=== PATIENT | female | born 1950 | race Caucasian/White ===

== ENCOUNTER 2021-02-15 16:52 | Emergency (ER) | payer OTHER, MEDICAID ==
[~2021-02-15] VITALS: Ht 165.1 cm; Wt 66.3 kg
[2021-02-15] MEDS ORDERED: IV NORMAL SALINE 1,000ML 1,000 ML IV ONE (18:15)
--- NOTE | 2021-02-15 18:34 | PHYS DOC ---
Past History Past Surgical History: Cholecystectomy, Hysterectomy, Oophorectomy, Other Additional Past Surgical Histo: foot surgery Alcohol Use: None General Adult EDM: Chief Complaint: loose stools HPI: HPI: 70-year-old female presents at the direction of her primary care office for abdominal pain and loose stools. Patient states that she has been having issues for about 2 weeks. She tells me that she is actually feeling a bit better the last 2 days. She had a CT scan done which showed diverticulitis. She has not started any oral medications. She denies fever or chills. She has no other specific complaints this time. Review of Systems: Review of Systems: Constitutional: Denies fever or chills Eyes: Denies change in visual acuity HENT: Denies nasal congestion or sore throat Respiratory: Denies cough or shortness of breath Cardiovascular: Denies chest pain or edema GI: Intermittent abdominal pain, loose stools. Denies nausea, vomiting, bloody stools : Denies dysuria Musculoskeletal: Denies back pain or joint pain Integument: Denies rash Neurologic: Denies headache, focal weakness or sensory changes Endocrine: Denies polyuria or polydipsia Lymphatic: Denies swollen glands Psychiatric: Denies depression or anxiety Current Medications: Current Meds: Current Medications Medications (Trade) Dose Ordered Sig/Niko Start Time Stop Time Status Last Admin Dose Admin Sodium Chloride 1,000 ml @ 1,000 mls/hr 1X ONCE 02/15/21 18:15 02/15/21 19:14 Allergies: Allergies: Allergies Coded Allergies Type Severity Reaction Last Updated Verified codeine Allergy Unknown 02/15/21 Yes Physical Exam: PE: Constitutional: Well developed, well nourished, no acute distress, non-toxic appearance. [] HENT: Normocephalic, atraumatic, bilateral external ears normal, oropharynx moist, no oral exudates, nose normal. [] Eyes: PERRLA, EOMI, conjunctiva normal, no discharge. [] Neck: Normal range of motion, no tenderness, supple, no stridor. [] Cardiovascular: Heart rate regular rhythm, no murmur [] Lungs & Thorax: Bilateral breath sounds clear to auscultation [] Abdomen: Bowel sounds normal, soft, no tenderness, no masses, no pulsatile masses. [] Skin: Warm, dry, no erythema, no rash. [] Back: No tenderness, no CVA tenderness. [] Extremities: No tenderness, no cyanosis, no clubbing, ROM intact, no edema. [] Neurologic: Alert and oriented X 3, normal motor function, normal sensory function, no focal deficits noted. [] Psychologic: Affect normal, judgement normal, mood normal. [] Current Patient Data: Vital Signs: Vital Signs Date Time Temp Pulse Resp B/P (MAP) Pulse Ox O2 Delivery O2 Flow Rate FiO2 02/15/21 18:08 98.6 72 18 106/49 98 Room Air EKG: EKG: [] Radiology/Procedures: Radiology/Procedures: [] Impressions: EXAMINATION: CT abdomen and pelvis without IV contrast. INDICATION:70 years, Female, severe constipation generalized abdominal pain for 10 days. TECHNIQUE: Axial CT images of the abdomen and pelvis were obtained. Coronal and sagittal reformatted performed. COMPARISON: None. Exposure: One or more of the following individualized dose reduction techniques were utilized for this examination: 1. Automated exposure control 2. Adjustment of the mA and/or kV according to patient size 3. Use of iterative reconstruction technique. FINDINGS: LOWER CHEST: Unremarkable. ABDOMEN/PELVIS: Within the limitation of noncontrast exam, Liver, and spleen are unremarkable. Cholecystectomy. No biliary ductal dilation. Mildly atrophic pancreatic parenchyma. Nodular thickening of the adrenal gland without discrete nodule. No hydronephrosis or nephrolithiasis in either kidney. Colonic diverticulosis. Focal wall thickening of the sigmoid colon with perisigmoid fat stranding. No extraluminal gas to suggest perforation. There is 3.2 x 1.6 cm lobulated fluid density structure in the left pelvic sidewall superior to the inflamed sigmoid colon (series 2 image 92). No bowel obstruction. Appendix is not seen. There is a 1.4 cm fat density focus within the second portion of the duodenum (series 2 image 60), may represent intraduodenal lipoma versus ingested material. Mild infrarenal abdominal aortic aneurysm measures up to 3.1 cm in diameter. Diffuse atherosclerotic disease in the abdominal aorta and bilateral iliac arteries. No pneumoperitoneum or ascites. No lymphadenopathy in the abdomen or pelvis by size criteria. Nonspecific nonenlarged retroperitoneal and bilateral pelvic lymph nodes, likely reactive. Unremarkable urinary bladder. Hysterectomy changes. MUSCULOSKELETAL: No acute osseous process. Multilevel degenerative changes in the lumbar spine. Postsurgical changes along the right anterior abdominal wall. IMPRESSION: 1. Acute sigmoid diverticulitis. Lobulated 3.2 cm fluid density structure in the left pelvic sidewall superior to the inflamed sigmoid colon, may represent an ovarian cyst versus non-drainable abscess. Recommend follow-up after treatment completion to ensure resolution and exclude underlying neoplasm. 2. Mild infrarenal abdominal aortic aneurysm measures up to 3.1 cm. Abdominal aortic aneurysm measuring 3.0-3.4 cm as above. Recommend follow-up ultrasound or CTA in 3 years per ACR and SVS recommendations. Electronically signed by: Reginaldo Barrera MD (02/15/2021 12:32 PM) [facility] DICTATED AND SIGNED BY: REGINALDO BARRERA MD DATE: 02/15/21 1220 CC: KEELEY BUCHANAN MD; REN WING APRN ~MTH0 0 Heart Score: C/O Chest Pain: N/A Risk Factors: Risk Factors: DM, Current or recent (<one month) smoker, HTN, HLP, family history of CAD, obesity. Risk Scores: Score 0 - 3: 2.5% MACE over next 6 weeks - Discharge Home Score 4 - 6: 20.3% MACE over next 6 weeks - Admit for Clinical Observation Score 7 - 10: 72.7% MACE over next 6 weeks - Early Invasive Strategies Course & Med Decision Making: Course & Med Decision Making Pertinent Labs and Imaging studies reviewed. (See chart for details) The patient's labs are significant for a white count of 15.3. She also has a hemoglobin of 7.7 with an appropriate hematocrit. It is microcytic so likely chronic. She does not appear to be having symptoms from it. She is denied any rectal bleeding or bleeding from other sources. Patient also has a creatinine of 1.5. I have no previous baseline labs to compare. We have ordered a liter of normal saline for her. I will treat her with Augmentin in the ER and discharge her with 10 days of the same. She will follow-up with her primary care physician as needed. If her condition worsens she will return to the hospital for admission and IV antibiotics. She is stable for discharge at this time. [] Ana Disclaimer: Ana Disclaimer: This electronic medical record was generated, in whole or in part, using a voice recognition dictation system. Departure Departure: Impression: Primary Impression: Diverticulitis Additional Impressions: Anemia Qualified Codes: D64.9 - Anemia, unspecified Elevated serum creatinine Disposition: HOME / SELF CARE / HOMELESS Condition: STABLE Referrals: KEELEY BUCHANAN MD (PCP) Patient Instructions: Diverticulitis, [id number] Scripts Amoxicillin/Potassium Clav (AUGMENTIN 875-125 TABLET) 1 Each Tablet 1 TAB PO BID for diverticulitis for 10 Days, #20 TAB 0 Refills Prov: VARUN LEVINE DO 02/15/21 VARUN LEVINE DO Feb 15, 2021 18:34
[2021-02-15 18:45] LABS: BASO # 0.2 x10^3/uL (0.0-0.2); BASO % 1 % (0-3); EOS # 0.1 x10^3/uL (0.0-0.7); EOS % 1 % (0-3); HEMATOCRIT 25.3 % (36.0-47.0); HEMOGLOBIN 7.7 g/dL (12.0-15.5); LYMPH # 2.1 x10^3/uL (1.0-4.8); LYMPH % 14 % (24-48); MEAN CORPUSCULAR HEMOGLOBIN 18 pg (25-35); MEAN CORPUSCULAR HGB CONC 30 g/dL (31-37); MEAN CORPUSCULAR VOLUME 60 fL (79-100); MONO # 1.3 x10^3/uL (0.0-1.1); MONO % 9 % (0-9); NEUT # 11.5 x10^3uL (1.8-7.7); NEUT % 75 % (31-73); PLATELET COUNT 731 x10^3/uL (140-400); RED BLOOD COUNT 4.19 x10^6/uL (3.50-5.40); RED CELL DISTRIBUTION WIDTH 18.9 % (11.5-14.5); WHITE BLOOD COUNT 15.2 x10^3/uL (4.0-11.0)
[2021-02-15 18:56] LABS: CALCIUM 8.9 mg/dL (8.5-10.1); CREATININE 1.5 mg/dL (0.6-1.0); GFR 34.4; POTASSIUM 3.7 mmol/L (3.5-5.1)
[2021-02-15] MEDS ORDERED: AMOXICILLIN/K CLAV 875/125MG TABLET. PO ONE (19:00)
[2021-02-15 19:02] LABS: ALBUMIN 3.1 g/dL (3.4-5.0); ALBUMIN/GLOBULIN RATIO 0.7 (1.0-1.7); TOTAL BILIRUBIN 0.5 mg/dL (0.2-1.0); TOTAL PROTEIN 7.5 g/dL (6.4-8.2)
[2021-02-15] MEDS ORDERED: AMOX1TAB61 PO (19:27)
[2021-02-15 19:50] VITALS: BP 118/62
[2021-02-15 19:58] LABS: % EOS 2 % (0-5); % LYMPHS 24 % (24-48); % MONOS 5 % (0-10); % SEGS 69 % (35-66)
[2021-02-15 19:59] LABS: PLT ESTIMATE INCREASED (ADEQUATE)
== END 2021-02-15 19:50 | disposition home or self-care (01) ==
LOC: ER 16:52
DX: K57.92 Diverticulitis of intestine, part unspecified, without perforation or abscess without bleeding (principal); D64.9 Anemia, unspecified; R79.89 Other specified abnormal findings of blood chemistry; Z90.49 Acquired absence of other specified parts of digestive tract; Z88.5 Allergy status to narcotic agent; Z90.710 Acquired absence of both cervix and uterus
CPT/HCPCS: 36415; 80053; 85007; 85025; 96360; 99283; J7030

== ENCOUNTER → 2021-02-15 | Outpatient (CLI) | payer OTHER, MEDICAID ==
[~2021-02-15] MED LIST: AMOX1TAB61 PO
--- NOTE | 2021-02-15 12:34 | RAD ---
EXAMINATION: CT abdomen and pelvis without IV contrast. INDICATION:70 years, Female, severe constipation generalized abdominal pain for 10 days. TECHNIQUE: Axial CT images of the abdomen and pelvis were obtained. Coronal and sagittal reformatted performed. COMPARISON: None. Exposure: One or more of the following individualized dose reduction techniques were utilized for thi s examination: 1. Automated exposure control 2. Adjustment of the mA and/or kV according to patient size 3. Use of iterative reconstruction technique. FINDINGS: LOWER CHEST: Unremarkable. ABDOMEN/PELVIS: Within the limitation of noncontrast exam, Liver, and spleen are unremarkable. Cholecystectomy. No biliary ductal dilation. Mildly atrophic panc reatic parenchyma. Nodular thickening of the adrenal gland without discrete nodule. No hydronephrosis or nephrolithiasis in either kidney. Colonic diverticulosis. Focal wall thickening of the sigmoid colon with perisigmoid fat stranding. No extraluminal gas to suggest perforation. There is 3.2 x 1.6 cm lobulated fluid density structure in the left pelvic sidewall superior to the inflamed sigmoid colon (series 2 image 92). No bowel obstruc tion. Appendix is not seen. There is a 1.4 cm fat density focus within the second portion of the duod enum (series 2 image 60), may represent intraduodenal lipoma versus ingested material. Mild infrarenal abdominal aortic aneurysm measures up to 3.1 cm in diameter. Diffuse atherosclerotic disease in the abdominal aorta and bilateral iliac arteries. No pneumoperitoneum or ascites. No lymph adenopathy in the abdomen or pelvis by size criteria. Nonspecific nonenlarged retroperitoneal and genet ateral pelvic lymph nodes, likely reactive. Unremarkable urinary bladder. Hysterectomy changes. MUSCULOSKELETAL: No acute osseous process. Multilevel degenerative changes in the lumbar spine. Postsurgical changes a long the right anterior abdominal wall. IMPRESSION: 1. Acute sigmoid diverticulitis. Lobulated 3.2 cm fluid density structure in the left pelvic sidewall superior to the inflamed sigmoid colon, may represent an ovarian cyst versus non-drainable abscess. Recommend follow-up after treatment completion to ensure resolution and exclude underlying neoplasm. 2. Mild infrarenal abdominal aortic aneurysm measures up to 3.1 cm. Abdominal aortic aneurysm measuri ng 3.0-3.4 cm as above. Recommend follow-up ultrasound or CTA in 3 years per ACR and SVS recommendati ons. Electronically signed by: Tamir Barrera MD (02/15/2021 12:32 PM) [facility]
== END ==
LOC: CT 11:45
PROVIDERS: ATTEND Family Medicine
DX: K57.32 Diverticulitis of large intestine without perforation or abscess without bleeding (principal); K57.30 Diverticulosis of large intestine without perforation or abscess without bleeding; K52.89 Other specified noninfective gastroenteritis and colitis; I70.0 Atherosclerosis of aorta; I71.4 Abdominal aortic aneurysm, without rupture; K86.89 Other specified diseases of pancreas; M47.816 Spondylosis without myelopathy or radiculopathy, lumbar region; Z90.49 Acquired absence of other specified parts of digestive tract
CPT/HCPCS: 74176

== ENCOUNTER → 2021-06-14 | Outpatient (CLI) | payer MEDICARE, MEDICAID ==
[2021-03-23 10:38] VITALS: BP 150/60
[~2021-06-14] MED LIST changes: +IOHEXOL 240 MG/ML 50ML VIAL. ONE; +IOHEXOL 240 MG/ML 50ML VIAL. PO ONE
--- NOTE | 2021-06-14 13:36 | RAD ---
CT ABDOMEN+PELVIS W History: Constipation, concern for bowel obstruction. Comparison: CT abdomen pelvis 02/15/2021. Technique: CT abdomen and pelvis with oral contrast only. Findings: The lung bases are clear. The liver is within normal limits. The pancreas, spleen, adrenal glands and kidneys are unremarkable. There has been cholecystectomy. No significant biliary ductal dilatation. The stomach is decompressed. Small bowel is within normal limits without evidence of obstruction. The re is a moderate colonic stool burden without abnormal distention. Mild descending colonic diverticul osis. Sigmoid diverticulitis with wall thickening and pericolonic inflammatory fat changes. A small f oci of air between the sigmoid colon and a loop of small bowel consistent with contained microperfora tion. No well-formed fluid collections are identified. Fusiform dilation of the infrarenal aorta at the level of the inferior mesenteric artery measures 3.0 cm diameter. No adenopathy. Soft tissues are unremarkable. Degenerative changes of the left greater than right hips with subchondral cystic change in the acetabulum. Biphasic curvature of the lumbar sp ine with multilevel degenerative endplate changes and facet hypertrophy. Impression: 1. Acute sigmoid diverticulitis with small foci of extraluminal air consistent with contained microp erforation. No abscess identified. 2. Abdominal aortic aneurysm measuring 3 cm diameter. Recommend follow-up abdominal aortic ultrasoun d in 3 years. ------ Exposure: One or more of the following individualized dose reduction techniques were utilized for thi s examination: 1. Automated exposure control 2. Adjustment of the mA and/or kV according to patient size 3. Use of iterative reconstruction technique. Electronically signed by: Miguel Olivera MD (06/14/2021 1:34 PM) [id number]
== END ==
LOC: CT 11:35
PROVIDERS: ATTEND Family Medicine
DX: K57.32 Diverticulitis of large intestine without perforation or abscess without bleeding (principal); I71.4 Abdominal aortic aneurysm, without rupture; K57.30 Diverticulosis of large intestine without perforation or abscess without bleeding; K31.89 Other diseases of stomach and duodenum; K59.00 Constipation, unspecified; M16.0 Bilateral primary osteoarthritis of hip; M47.816 Spondylosis without myelopathy or radiculopathy, lumbar region
CPT/HCPCS: 74176

== ENCOUNTER → 2021-08-13 | Outpatient (CLI) | payer MEDICARE, MEDICAID ==
[2021-03-23 10:38] VITALS: BP 150/60
[~2021-08-13] MED LIST changes: -IOHEXOL 240 MG/ML 50ML VIAL. PO ONE; +IOHEXOL 300 MG/ML 75 ML VIAL. IV ONE
--- NOTE | 2021-08-13 10:58 | RAD ---
CT ABDOMEN+PELVIS W History: Reason: PERFORATION OF INTESTINE (NONTRAUMATIC) / Spl. Instructions: OMNI 300 75ML IV / Hist ory: Technique: After the administration of intravenous contrast, CT imaging was performed of the abdomen and pelvis. Multiplanar images are reviewed. Exposure: One or more of the following individualized dose reduction techniques were utilized for thi s examination: 1. Automated exposure control 2. Adjustment of the mA and/or kV according to patient size 3. Use of iterative reconstruction technique. Comparison: June 14, 2021 Findings: Lower chest: No consolidation or pleural effusion. Abdomen and pelvis: The liver, spleen, adrenal glands, and pancreas are unremarkable. Prior cholecyst ectomy. Mild prominence of the biliary ducts relate to postcholecystectomy state. No renal calculus. No hydronephrosis. Decompressed urinary bladder. Long segment sigmoid colonic wall thickening with adjacent inflammatory changes increased compared to prior. The adjacent fat stranding extends to the adjacent small bowel with small bowel wall thickeni ng (series 2 image 65 and image 68 is present. There is increased small bowel wall thickening compare d to prior. Small fluid and air-containing collection along the anterior aspect of the sigmoid colon extending along small bowel loop (series 2 image 65 and series 4 image 34) measures 2.0 x 1.3 cm. Sma ll foci of potential extraluminal gas (series 2 image 63 and series 4 image 29). Appendix not well seen. No evidence of bowel obstruction. Small retroperitoneal and pelvic lymph node s, similar compared to prior. Atheromatous plaque throughout the aorta. Infrarenal abdominal aortic a neurysm measures 3.0 cm, unchanged. Right upper abdominal wall hernia repair. Bones: Grade 1 anterolisthesis L3 on L4. Mild retrolisthesis L1 on L2. Additional lumbar spondylosis. Impression: 1. Increased along segment sigmoid colonic wall thickening with adjacent fat stranding and infiltrat ion extending to adjacent thick-walled small bowel. Findings may relate to infectious or inflammatory colitis with fistulous claudication to adjacent small bowel. Recommend follow-up imaging and/or dire ct visualization after treatment to exclude underlying malignancy. 2. Small adjacent extraluminal gas concerning for contained microperforations. 3. Small fluid and gas collection anterior to the sigmoid colon, may represent small abscess or a co mponent of fistula to small bowel. Electronically signed by: Guru Akbar DO (08/13/2021 10:56 AM) [facility]
== END ==
LOC: CT 08:54
PROVIDERS: ATTEND Family Medicine
DX: K63.1 Perforation of intestine (nontraumatic) (principal); I71.4 Abdominal aortic aneurysm, without rupture; I70.0 Atherosclerosis of aorta; M47.816 Spondylosis without myelopathy or radiculopathy, lumbar region; M43.16 Spondylolisthesis, lumbar region; Z90.49 Acquired absence of other specified parts of digestive tract
CPT/HCPCS: 74177; Q9967

== ENCOUNTER 2021-08-16 15:16 | Emergency (ER) | payer MEDICARE, MEDICAID ==
[~2021-08-16] VITALS: Ht 162.6 cm; Wt 56.0 kg
[~2021-08-16 15:16] MED LIST changes: -IOHEXOL 240 MG/ML 50ML VIAL. ONE; -IOHEXOL 300 MG/ML 75 ML VIAL. IV ONE
[2021-08-16 17:23] VITALS: BP 135/63
== END 2021-08-16 17:51 | disposition left against medical advice (07) ==
LOC: ER 15:16
DX: R10.2 Pelvic and perineal pain (principal); Z53.21 Procedure and treatment not carried out due to patient leaving prior to being seen by health care provider

== ENCOUNTER → 2021-11-13 | Outpatient (CLI) | payer MEDICARE, MEDICAID ==
--- NOTE | 2021-11-13 16:44 | RAD ---
CT scan abdomen and pelvis without contrast 11/13/2021 CLINICAL HISTORY: Hernia. TECHNIQUE: Unenhanced, contiguous, 3 mm axial sections were obtained through the abdomen and pelvis. One or more of the following individualized dose reduction techniques were utilized for this study: 1. Automated exposure control. 2. Adjustment of the mA and/or kV according to patient size. 3. Use of iterative reconstruction technique. FINDINGS: Comparison study is dated 11/13/2021. Images through the lung bases are within normal limits. The liver, spleen, pancreas, adrenal glands and kidneys are within normal limits. Atherosclerotic calcification abdominal aorta and its branches is noted. The infrarenal abdominal aor ta is again noted be ectatic measuring 3 cm in greatest diameter. This is unchanged. Surgical clips a re seen within the gallbladder fossa consistent with a cholecystectomy. The patient is post hernia re pair involving the anterior abdominal wall the right upper quadrant of the abdomen. A colostomy is be en placed into the left mid abdomen. There may be a small fat-containing parastomal hernia which ancelmo ures 3 cm in size. Multiple diverticula are seen involving the descending colon. No inflammatory patel ges are seen adjacent fat. Images through the pelvis was reviewed urinary bladder distended with urine. Calcifications are seen within the pelvis consistent phleboliths. No free fluid is seen. A bowel anastomosis is seen within t he right pelvis. Mild S-shaped curvature of the thoracolumbar spine is seen. Degenerative changes are seen involving the lower thoracic and throughout the lumbar spine along with both hips. IMPRESSION: Question 3 cm fat-containing parastomal hernia. No additional acute abnormality is seen. Electronically signed by: John Roberto MD (11/13/2021 4:42 PM) [id number]
== END ==
LOC: CT 11:39
PROVIDERS: ATTEND Family Medicine
DX: I77.811 Abdominal aortic ectasia (principal); I70.0 Atherosclerosis of aorta; K57.30 Diverticulosis of large intestine without perforation or abscess without bleeding; M41.85 Other forms of scoliosis, thoracolumbar region; M47.816 Spondylosis without myelopathy or radiculopathy, lumbar region; M47.814 Spondylosis without myelopathy or radiculopathy, thoracic region; M16.0 Bilateral primary osteoarthritis of hip; K45.8 Other specified abdominal hernia without obstruction or gangrene; Z93.3 Colostomy status
CPT/HCPCS: 74176